=== PATIENT | female | born 1980 | race Caucasian/White ===

== ENCOUNTER → 2023-05-08 08:50 | Outpatient (REF) | payer OTHER, SELFPAY ==
--- NOTE | 2023-05-08 09:36 | PN.DIAED06 ---
Meal Plan - Gestational
- Breakfast
Gestational Diabetes Meal Plan Name: 1800 calories
Breakfast - Total Carbohydrate (grams): 30
Breakfast - Starch Carbohydrate: 1
Breakfast - Fruit Carbohydrate: 0
Breakfast - Milk Carbohydrate: 1
Breakfast - Nonstarchy Vegetables: Yes
Breakfast - Meat/Protein: 1
Breakfast - Fat: 2
- Morning Snack
Morning Snack - Total Carbohydrate (grams): 30
Morning Snack - Starch Carbohydrate: 1
Morning Snack - Fruit Carbohydrate: 0
Morning Snack - Milk Carbohydrate: 1
Morning Snack - Nonstarchy Vegetables: Yes
Morning Snack - Meat/Protein: 0.5
Morning Snack - Fat: 0
- Lunch
Lunch - Total Carbohydrate (grams): 45
Lunch - Starch Carbohydrate: 2
Lunch - Fruit Carbohydrate: 1
Lunch - Milk Carbohydrate: 0
Lunch - Nonstarchy Vegetables: Yes
Lunch - Meat/Protein: 2
Lunch - Fat: 1
- Afternoon Snack
Afternoon Snack - Total Carbohydrate (grams): 30
Afternoon Snack - Starch Carbohydrate: 1
Afternoon Snack - Fruit Carbohydrate: 1
Afternoon Snack - Milk Carbohydrate: 0
Afternoon Snack - Nonstarchy Vegetables: Yes
Afternoon Snack - Meat/Protein: 1
Afternoon Snack - Fat: 0
- Dinner
Dinner - Total Carbohydrate (grams): 45
Dinner - Starch Carbohydrate: 2
Dinner - Fruit Carbohydrate: 0
Dinner - Milk Carbohydrate: 1
Dinner - Nonstarchy Vegetables: Yes
Dinner - Meat/Protein: 2
Dinner - Fat: 2
- Evening Snack
Evening Snack - Total Carbohydrate (grams): 30
Evening Snack - Starch Carbohydrate: 1
Evening Snack - Fruit Carbohydrate: 0
Evening Snack - Milk Carbohydrate: 1
Evening Snack - Nonstarchy Vegetables: Yes
Evening Snack - Meat/Protein: 1
Evening Snack - Fat: 1
--- NOTE | 2023-05-08 11:00 | PN.DIAED02 ---
Referral
Referred For: Gestational Diabetes Self-Management Training
PHI Release Authorization Form Signed: Yes
Care Plan
- Education Needs
Patient Education Needs: Preconception care//gestational diabetes management
Recommended Diabetes Training Program based on assessment: Gestational Diabetes Management
- Plan of Care
Plan of Care:
EDC [birth year], male. Discussed what is occurring in her body with GDM and importance to keep BS well controlled to avoid complications (macrosomia, hypoglycemia). I had talked with her on the phone last week for a bit as she was nervous/anxious
regarding the diagnosis (sister w/T1DM, 7 yrs ago). She felt comforted by our conversation and much more relaxed now that she is informed. Provided with Contour Next Gen glucometer (states her insurance will pay for supplies). Aware to test
FBS and 2 hr pp every meal as parameters of results (FBS <95 mg/dl, 2 hr PP <120 mg/dl). She s/w [facility] at [facility] and is aware to call results to the office every Monday. Log sheet provided for her to record results. Result today 92
mg/dl 1 hr pB. BRYAN Salinas will call in supplies to her pharmacy. Discussed macronutrients and effect each plays in glucose metabolism. 1800 GDM meal plan provided and reviewed her current eating selection. She is aware to withhold fruit/fruit juice
until noon. She will drink skim milk with cereal. Suggest adding protein to breakfast and afternoon snack. Reviewed reading food labels.She finds she has a sweet tooth this and wants to be certain that her preferences are not over her
allotted CHO. Of note, she is not consuming peanut butter cup/peppermint chelsie/ice cream every day but does enjoy a sweet treat. She is aware with all meals that if her BS is elevated, to reduce portion size. Her dinner and lunches (leftover from
the previous night) are generally a protein,starch,vegetable and salad. She is aware to keep as active as possible to prepare her body for delivery and help burn up BS. She is aware that having GDM puts her at risk of developing T2DM in the future.
Phone number provided for any follow up questions or if insulin is required.
== END ==
LOC: DES 08:50
PROVIDERS: ATTENDING PHYSICIAN Obstetrics & Gynecology
DX: O24.419 Gestational diabetes mellitus in pregnancy, unspecified control (principal)
CPT/HCPCS: 99078

== ENCOUNTER 2023-07-09 18:56 | Inpatient (IN) | payer OTHER, SELFPAY ==
[2023-07-09 19:09] VITALS: BP 125/71; BMI 28.8
[2023-07-09 19:46] LABS: Glucose - Point of Care 107 mg/dl (70-99)
[2023-07-09 19:55] LABS: % Basophils 0.3 % (0-2); % Eosinophils 0.1 % (0-6); % Immature Granulocytes 0.4 % (0-0.5); % Monocytes 4.6 % (1.7-9.3); % Neutrophils 85.6 % (42.2-75.2); Absolute Immature Granulocytes 0.1 10^3/uL (0-0.05); Absolute Lymphocytes 1.2 10^3/uL (1.2-3.4); Absolute Monocytes 0.6 10^3/uL (0.1-0.6); Absolute Neutrophils 11.2 10^3/uL (1.4-6.5); Hematocrit 36.4 % (37.0-47.0); Hemoglobin 12.8 g/dL (12.0-16.0); Mean Corp Hgb Conc. 35.2 g/dL (33.0-37.0); Mean Corpuscular Hgb 29.1 pg (27.0-31.0); Mean Corpuscular Volume 82.7 fL (81.0-99.0); Mean Platelet Volume 10.1 fL (7.4-10.4); Nucleated Red Blood Cells % 0 %; Platelet Count 304 10^3/uL (130-400); Red Cell Dist. Width 12.6 % (11.5-14.5); White Blood Cell Count 13.1 10^3/uL (4.8-10.8)
[2023-07-09] MEDS: ANCEF 10 IV (19:56)
[2023-07-09] MEDS: TYLENOL 1000 MG PO (19:56)
[2023-07-09] MEDS: BICITRA 30 ML PO (19:56)
[2023-07-09] MEDS: LR 1000 IV (19:56)
[2023-07-09] MEDS: PITOCIN 30 UNITS/NSS 500 ML IV (23:48)
[2023-07-10] MEDS: MORPHINE SULFATE 2 MG IV (01:20)
[2023-07-10] MEDS: TORADOL 15 MG IV ×4 (03:16→20:59)
[2023-07-10 03:23] LABS: Hematocrit 32.6 % (37.0-47.0); Hemoglobin 11.5 g/dL (12.0-16.0); Mean Corp Hgb Conc. 35.3 g/dL (33.0-37.0); Mean Corpuscular Hgb 29.3 pg (27.0-31.0); Mean Corpuscular Volume 83.2 fL (81.0-99.0); Mean Platelet Volume 10.6 fL (7.4-10.4); Platelet Count 271 10^3/uL (130-400); Red Blood Cell Count 3.92 10^6/uL (4.20-5.40); Red Cell Dist. Width 12.7 % (11.5-14.5); White Blood Cell Count 15.7 10^3/uL (4.8-10.8)
[2023-07-10] MEDS: SENOKOT-S 1 TABLET PO (08:34)
[2023-07-11] MEDS: PERCOCET 5/325 1 TABLET PO ×2 (02:41→21:06)
[2023-07-11] MEDS: TYLENOL 650 MG PO ×2 (08:36→16:59)
[2023-07-11] MEDS: MOTRIN 600 MG PO ×2 (08:36→16:59)
[2023-07-11] MEDS: SENOKOT-S 1 TABLET PO (08:36)
[2023-07-11 15:35] LABS: Syphilis/T. pallidum Ab Reflex Negative (Negative)
[2023-07-12] MEDS: MOTRIN 600 MG PO ×2 (00:42→09:27)
[2023-07-12] MEDS: PERCOCET 5/325 1 TABLET PO (05:38)
--- NOTE | 2023-07-12 08:54 | W.DS.TRANS ---
DC Summary - [employer]
-
Discharge Instructions:
Discharge Diagnosis/Procedures term , delivered; s/p [facility]
Instructions:
Stand-Alone Forms: [facility]DRP Delivery
Changes to Home Medications: Yes
Discharge Medications:
DC Medications w/original date entered in [employer]
Pre-Ramu Vitamin 1 tab PO DAILY 12/17/20
acetaminophen 325 mg tablet 650 mg (2 x 325 mg) PO Q4HPRN PRN mild pain #0 tabs 07/12/23
ibuprofen 600 mg tablet 600 mg PO Q6HPRN PRN cramps #60 tabs 07/12/23
oxycodone 5 mg capsule 5 mg PO Q4H PRN pain not relieved with motrin or tylenol #7 caps 07/12/23
sennosides 8.6 mg-docusate sodium 50 mg tablet (Stool Softener-Stimulant Laxative) 1 tab PO DAILYPRN PRN constipation #0 tabs 07/12/23
Home Medication Changes
you may stop taking Aspirin 81mg
Pending Results: No
Total time spent discharging patient (in min): 30
[2023-07-12] MEDS: SENOKOT-S 1 TABLET PO (09:27)
== END 2023-07-12 11:40 | disposition home or self-care (01) | DRG 788 ==
LOC: LDRP 18:56
PROVIDERS: ADMITTING PHYSICIAN Obstetrics & Gynecology
PROC: 10D00Z1 Extraction of Products of Conception, Low, Open Approach (ICD-10-PCS; 2023-07-09)
DX: O32.1XX0 Maternal care for breech presentation, not applicable or unspecified (principal); O24.420 Gestational diabetes mellitus in childbirth, diet controlled; Z3A.37 37 weeks gestation of pregnancy; Z37.0 Single live birth; F41.9 Anxiety disorder, unspecified; O99.344 Other mental disorders complicating childbirth; Z83.3 Family history of diabetes mellitus; Z82.49 Family history of ischemic heart disease and other diseases of the circulatory system
CPT/HCPCS: 82962; 85025; 85027; 86780; 86850; 86900; 86901

== ENCOUNTER → 2024-02-20 17:00 | Outpatient (REF) | payer OTHER, SELFPAY | LOC: WDC 17:00 | PROVIDERS: ATTENDING PHYSICIAN Obstetrics & Gynecology Gynecology | DX: Z12.31 Encounter for screening mammogram for malignant neoplasm of breast (principal); Z01.419 Encounter for gynecological examination (general) (routine) without abnormal findings | CPT/HCPCS: 77063; 77067 ==

== ENCOUNTER → 2024-03-04 09:54 | Outpatient (REF) | payer OTHER, SELFPAY | LOC: WDC 09:54 | PROVIDERS: ATTENDING PHYSICIAN Obstetrics & Gynecology Gynecology | DX: R92.8 Other abnormal and inconclusive findings on diagnostic imaging of breast (principal) | CPT/HCPCS: 76642 ==

== ENCOUNTER → 2025-02-20 15:40 | Outpatient (REF) | payer OTHER, SELFPAY | LOC: WDC 15:40 | PROVIDERS: ATTENDING PHYSICIAN Obstetrics & Gynecology Gynecology; FAMILY PHYSICIAN Nurse Practitioner Adult Health | DX: Z12.31 Encounter for screening mammogram for malignant neoplasm of breast (principal) | CPT/HCPCS: 77063; 77067 ==